=== PATIENT | female | born 1985 ===

== ENCOUNTER 2017-05-26 05:32 | Emergency (ER) | payer OTHER ==
[2017-05-26 05:54] VITALS: BP 132/74; RESP 17; TEMP 97.9
--- NOTE | 2017-05-26 06:27 | ED PDOC ---
HPI: General Adult Time Seen by Provider: 05/26/17 05:55 Chief Complaint (Nursing): Cough, Cold, Congestion Chief Complaint (Provider): Fever/Flu History Per: Patient History/Exam Limitations: no limitations Onset/Duration Of Symptoms: Days (3 days) Current Symptoms Are (Timing): Still Present Additional Complaint(s): Rosie Walker is a 31 y/o female, with no past medical history and surgical history, presents to the ED complaining of fever, nausea, and cough, with an onset of 3 days ago. Patient reports of taking Theraflu before coming to the ED , but experienced no relief. Of note, patient denies of any diarrhea, smoking, and alcohol use. Past Medical History Reviewed: Historical Data, Nursing Documentation, Vital Signs Vital Signs: Last Vital Signs Temp 97.9 F 05/26/17 05:43 Pulse 105 H 05/26/17 05:43 Resp 17 05/26/17 05:43 BP 132/74 05/26/17 05:43 Pulse Ox 97 05/26/17 06:38 - Surgical History Surgical History: No Surg Hx - Family History Family History: States: Unknown Family Hx - Social History Current smoker - smoking cessation education provided: No Alcohol: None - Home Medications Home Medications: Ambulatory Orders Medication Instructions Recorded Permethrin [Elimite] 5 cre TP DAILY #1 cre 03/17/15 Azithromycin [Zithromax] 250 mg PO DAILY #6 tab 05/26/17 - Allergies Allergies/Adverse Reactions: Allergies Allergy/AdvReac Type Severity Reaction Status Date / Time No Known Allergies Allergy Verified 10/06/14 23:52 Review of Systems ROS Statement: Except As Marked, All Systems Reviewed And Found Negative Constitutional: Positive for: Fever Respiratory: Positive for: Cough Gastrointestinal: Positive for: Nausea, Vomiting (One episode). Negative for: Diarrhea Physical Exam - Reviewed Nursing Documentation Reviewed: Yes Vital Signs Reviewed: Yes - Physical Exam Appears: Positive for: Non-toxic, No Acute Distress Head Exam: Positive for: ATRAUMATIC, NORMOCEPHALIC Skin: Positive for: Normal Color, Warm, Dry Eye Exam: Positive for: Normal appearance, EOMI, PERRL Neck: Positive for: Normal, Painless ROM, Supple Cardiovascular/Chest: Positive for: Regular Rate, Rhythm. Negative for: Murmur Respiratory: Positive for: Normal Breath Sounds. Negative for: Respiratory Distress Gastrointestinal/Abdominal: Positive for: Normal Exam, Soft. Negative for: Tenderness Back: Positive for: Normal Inspection Extremity: Positive for: Normal ROM. Negative for: Pedal Edema, Deformity Neurologic/Psych: Positive for: Alert, Oriented. Negative for: Motor/Sensory Deficits - ECG O2 Sat by Pulse Oximetry: 97 (RA) Pulse Ox Interpretation: Normal Medical Decision Making Medical Decision Making: Time: 06:13 Impression: Viral Illness Plan: --albuterol 2.5 mg INH --Toradol 60 mg iM --Peak Flow Pre/Post TX Reassess: 0700 --Patient feels better and will be discharged home diagnosed with bronchitis. Scribe Attestation: Documented by Obdulio Hester & Grodo Saldaña, acting as a scribe for Rita Cooney MD. Provider Scribe Attestation: All medical record entries made by the Scribe were at my direction and personally dictated by me. I have reviewed the chart and agree that the record accurately reflects my personal performance of the history, physical exam, medical decision making, and the department course for this patient. I have also personally directed, reviewed, and agree with the discharge instructions and disposition. Disposition - Clinical Impression Clinical Impression: Common cold, Bronchitis - Disposition Referrals: [facility] [Outside] [facility] [Outside] Disposition Time: 07:00 Condition: IMPROVED Additional Instructions: follow up with your primary doctor in 1-2 days return to the ED with any worsening or concerning symptoms. Prescriptions: Azithromycin [Zithromax] 250 mg PO DAILY #6 tab Instructions: Acute Bronchitis (ED) Forms: [employer] (Estonian)
[2017-05-26] MEDS: Albuterol 0.083% Inhal Sol (2.5 mg/3 mL) UD INH ONE (06:56)
[2017-05-26] MEDS ORDERED: Albuterol 0.083% Inhal Sol (2.5 mg/3 mL) UD ONE (06:58)
[2017-05-26 07:37] VITALS: PULSE 99; O2SAT 99
== END 2017-05-26 07:37 | disposition home or self-care (01) ==
LOC: H.ER 05:32
DX: J40 Bronchitis, not specified as acute or chronic (principal); B34.9 Viral infection, unspecified
CPT/HCPCS: 81025; 94150; 94640; 96372; 99283; J1885

== ENCOUNTER 2017-08-14 05:06 | Emergency (ER) | payer OTHER ==
[2017-08-14 05:37] VITALS: BP 148/88; PULSE 119; RESP 16; TEMP 102; O2SAT 100
[2017-08-14] MEDS ORDERED: Sodium Chloride 0.9% 1,000 ML IV STA (05:52)
[2017-08-14 06:29] LABS: BASO % 0.2 % (0.0-2.0); HEMOGLOBIN 12.3 g/dL (12.0-16.0); LYMPH # 0.4 K/uL (1.0-4.3); LYMPH % 3.2 % (20.0-40.0); MEAN CELL VOLUME 85.6 fl (81.0-99.0); MEAN CORPUSCULAR HEMOGLOBIN 27.9 pg (27.0-31.0); MEAN CORPUSCULAR HGB CONC 32.6 g/dL (33.0-37.0); MEAN PLATELET VOLUME 8.4 fl (7.2-11.7); MONO # 0.5 K/uL (0.0-0.8); MONO % 4.2 % (0.0-10.0); NEUT # 10.8 K/uL (1.8-7.0); NEUT % 92.4 % (50.0-75.0); NRBC % 0.1 % (0.0-0.0); PLATELET COUNT 204 K/uL (130-400); RED CELL DISTRIBUTION WIDTH 13.9 % (11.5-14.5); WHITE BLOOD COUNT 11.7 K/uL (4.8-10.8)
--- NOTE | 2017-08-14 06:35 | ED PDOC ---
HPI:Nausea, Vomiting, Diarrhea Time Seen by Provider: 08/14/17 05:48 Chief Complaint (Nursing): Flu-like Symptoms Chief Complaint (Provider): GI Issue History Per: Patient History/Exam Limitations: no limitations Onset/Duration Of Symptoms: Hrs (hours) Current Symptoms Are (Timing): Still Present Have you had recent travel within the past 21 days to any of the following countries: [place], [place], [place] or [place]?: No Associated Symptoms: Fever, Nausea, Vomiting, Diarrhea Additional Complaint(s): 32 year old female presents to ED with complaints of nausea, vomiting, and diarrhea x12 hours and has no past medical history. Reports 10 episodes of non- bloody, nonbilious vomit and describes stool as loose and watery. (+) fever and abdominal pain secondary to vomiting. (-) sore throat or rhinorrhea. Patient notes that recently was diagnosed and recovered from the flu. PCP: Dr. Terry Panchal Past Medical History Reviewed: Historical Data, Nursing Documentation, Vital Signs Vital Signs: Last Vital Signs Temp 102.0 F H 08/14/17 05:26 Pulse 119 H 08/14/17 05:26 Resp 16 08/14/17 05:26 BP 148/88 08/14/17 05:26 Pulse Ox 100 08/14/17 05:26 - Medical History PMH: No Chronic Diseases - Family History Family History: States: Unknown Family Hx - Living Arrangements Living Arrangements: With Family - Home Medications Home Medications: Ambulatory Orders Medication Instructions Recorded Permethrin [Elimite] 5 cre TP DAILY #1 cre 03/17/15 Azithromycin [Zithromax] 250 mg PO DAILY #6 tab 05/26/17 - Allergies Allergies/Adverse Reactions: Allergies Allergy/AdvReac Type Severity Reaction Status Date / Time No Known Allergies Allergy Verified 10/06/14 23:52 Review of Systems ROS Statement: Except As Marked, All Systems Reviewed And Found Negative Constitutional: Positive for: Fever ENT: Negative for: Nose Discharge ((-) rhinorrhea), Throat Pain Gastrointestinal: Positive for: Nausea, Vomiting, Abdominal Pain (secondary to vomiting), Diarrhea Physical Exam - Reviewed Nursing Documentation Reviewed: Yes Vital Signs Reviewed: Yes - Physical Exam Appears: Positive for: Non-toxic, No Acute Distress Skin: Positive for: Normal Color, Warm, Dry Eye Exam: Positive for: Normal appearance, EOMI, PERRL ENT: Positive for: Normal ENT Inspection Neck: Positive for: Normal, Painless ROM, Supple Cardiovascular/Chest: Positive for: Regular Rate, Rhythm. Negative for: Murmur Respiratory: Positive for: Normal Breath Sounds. Negative for: Respiratory Distress Gastrointestinal/Abdominal: Positive for: Soft. Negative for: Tenderness Extremity: Positive for: Normal ROM. Negative for: Deformity Neurologic/Psych: Positive for: Alert, Oriented. Negative for: Motor/Sensory Deficits - ECG O2 Sat by Pulse Oximetry: 100 (RA) Pulse Ox Interpretation: Normal Medical Decision Making Medical Decision Makin Initial impression: gastroenteritis Initial plan: * Labs * Lipase * NS IV * Zofran Inj 4mg IVP * Influenza A B * Re-eval 0700 Pt. to be signed out to Dr. Potter pending bloodwork and re-eval Scribe Attestation: Documented by Deanne Tillman acting as a scribe for Paco Dale MD. Scribe Attestation: All medical record entries made by the Scribe were at my direction and personally dictated by me. I have reviewed the chart and agree that the record accurately reflects my personal performance of the history, physical exam, medical decision making, and the department course for this patient. I have also personally directed, reviewed, and agree with the discharge instructions and disposition. Disposition - Clinical Impression Clinical Impression: Gastroenteritis - Patient ED Disposition Is Patient to be Admitted: Transfer of Care - Disposition Referrals: Terry Panchal DO [Primary Care Provider] - Disposition Time: 07:00 Condition: STABLE Forms: [employer] (Persian) Patient Signed Over To: Benita Potter Handoff Comments: pending bloodwork and re-eval
[2017-08-14 06:53] LABS: ALB/GLOB RATIO 1.1 (1.0-2.1); ALBUMIN 3.7 g/dL (3.5-5.0); ALT/SGPT 35 U/L (9-52); AST/SGOT 22 U/L (14-36); BLOOD UREA NITROGEN 13 mg/dl (7-17); GFR AFRICAN-AMERICAN > 60; GFR NON-AFRICAN AMERICAN > 60; LIPASE 31 U/L (23-300)
[2017-08-14 10:46] LABS: BANDS 3 % (0-2); LYMPHOCYTE 2 % (20-50); MONOCYTE 5 % (0-10); NEUTROPHIL 90 % (42-75); PLATELET ESTIMATE NORMAL (NORMAL); TOTAL CELLS COUNTED 100
[2017-08-14 10:47] LABS: ANISOCYTOSIS SLIGHT; LARGE PLATELETS PRESENT; MICROCYTOSIS SLIGHT; OVALOCYTES SLIGHT; TEARDROP CELLS SLIGHT
--- NOTE | 2017-08-14 10:55 | ED PDOC ---
- Laboratory Results Result Diagrams: 08/14/17 06:25 08/14/17 06:25 - ECG O2 Sat by Pulse Oximetry: 100 (RA) Medical Decision Making Medical Decision Making: Patient is feeling better. Will discharge. Disposition Doctor Will See Patient In The: Office Counseled Patient/Family Regarding: Diagnosis - Clinical Impression Clinical Impression: Gastroenteritis - POA Present On Arrival: None - Disposition Referrals: Terry Panchal DO [Primary Care Provider] - Disposition: Routine/Home Disposition Time: 10:00 Condition: STABLE Forms: [employer] (Mohawk)
== END 2017-08-14 11:26 | disposition home or self-care (01) ==
LOC: H.ER 05:06
DX: K52.9 Noninfective gastroenteritis and colitis, unspecified (principal)
CPT/HCPCS: 80053; 83690; 85025; 87804; 96374; 96375; 99283; J1885; J2405; J7040